=== PATIENT | female | born 1990 | race Caucasian/White ===

== ENCOUNTER 2017-01-04 16:52 | Emergency (ER) | payer MEDICAID ==
[~2017-01-04] VITALS: Ht 165.1 cm; Wt 74.0 kg
[~2017-01-04 16:52] MED LIST: ARIP5TAB6 PO; DEXT5TAB17 PO; LITH300C PO; LORA2TAB99 PO; TOPI100T24 PO; VENL150C PO
[2017-01-04 16:54] VITALS: BP 112/72
== END 2017-01-04 17:23 | disposition home or self-care (01) ==
LOC: ED 17:16
DX: Z76.0 Encounter for issue of repeat prescription (principal); B00.9 Herpesviral infection, unspecified; F90.9 Attention-deficit hyperactivity disorder, unspecified type
CPT/HCPCS: 99283

== ENCOUNTER 2017-02-02 12:39 | Emergency (ER) | payer MEDICAID ==
[~2017-02-02] VITALS: Ht 165.1 cm; Wt 75.0 kg
[~2017-02-02 12:39] MED LIST changes: +ARIP5TAB13 PO; -ARIP5TAB6 PO
[2017-02-02 12:44] VITALS: BP 116/69
[2017-02-02] MEDS ORDERED: AZITHROMYCIN 500 MG TABLET PO ONE ×2 (13:30→14:30)
[2017-02-02] MEDS ORDERED: CEFTRIAXONE 250 MG IM ONE (13:30)
[2017-02-02] MEDS ORDERED: AZITHROMYCIN 500 MG TABLET ONE (14:22)
== END 2017-02-02 14:33 | disposition home or self-care (01) ==
LOC: ED 14:10
DX: A56.09 Other chlamydial infection of lower genitourinary tract (principal); A54.03 Gonococcal cervicitis, unspecified; G43.909 Migraine, unspecified, not intractable, without status migrainosus; F90.9 Attention-deficit hyperactivity disorder, unspecified type
CPT/HCPCS: 99283

== ENCOUNTER 2017-08-04 11:43 | Emergency (ER) | payer MEDICAID ==
[~2017-08-04] VITALS: Ht 165.1 cm; Wt 80.0 kg
[2017-08-04 11:46] VITALS: BP 108/67
[2017-08-04] MEDS ORDERED: MAALOX/HYOSCYAMINE/LIDOCAINE 45 ML BTL PO ONE (12:30)
[2017-08-04] MEDS ORDERED: ONDANSETRON ODT 4 MG PO ONE (12:30)
[2017-08-04] MEDS ORDERED: FAMOTIDINE 20 MG TABLET PO ONE (12:30)
[2017-08-04] MEDS ORDERED: FAMOTIDINE 20 MG TABLET ONE (12:42)
[2017-08-04] MEDS ORDERED: ONDANSETRON ODT 4 MG ONE (12:43)
[2017-08-04] MEDS ORDERED: MAALOX/HYOSCYAMINE/LIDOCAINE 45 ML BTL ONE (12:43)
== END 2017-08-04 13:08 | disposition home or self-care (01) ==
LOC: ED 13:00
DX: R10.13 Epigastric pain (principal); G43.909 Migraine, unspecified, not intractable, without status migrainosus; F17.210 Nicotine dependence, cigarettes, uncomplicated
CPT/HCPCS: 99283; Q0162

== ENCOUNTER 2019-10-30 08:18 | Emergency (ER) | payer MEDICAID ==
[~2019-10-30] VITALS: Ht 162.6 cm; Wt 84.8 kg
[2019-10-30 08:21] VITALS: BP 113/75
[2019-10-30] MEDS ORDERED: OXYcodone/APAP 5/325MG TABLET PO ONE (11:30)
[2019-10-30] MEDS ORDERED: OXYcodone/APAP 5/325MG TABLET ONE (11:52)
== END 2019-10-30 12:05 | disposition home or self-care (01) ==
LOC: ED 09:11
DX: M79.604 Pain in right leg (principal); R60.0 Localized edema; G43.909 Migraine, unspecified, not intractable, without status migrainosus; Z91.040 Latex allergy status; Z88.8 Allergy status to other drugs, medicaments and biological substances
CPT/HCPCS: 99284